=== PATIENT | female | born 1970 | race Caucasian/White ===

== ENCOUNTER 2022-02-02 18:03 | Emergency (ER) | payer MEDICAID ==
[~2022-02-02] VITALS: Ht 177.8 cm; Wt 146.4 kg
[2022-02-02 18:49] LABS: BASOPHILS # (AUTO) 0.1 X10'3 (0-0.2); BASOPHILS % (AUTO) 0.7 % (0-1); EOSINOPHILS # (AUTO) 0.3 X10'3 (0-0.9); EOSINOPHILS % (AUTO) 2.5 % (0-6); HEMATOCRIT 40.4 % (35.0-45.0); HEMOGLOBIN 13.9 g/dl (12.0-16.0); LYMPHOCYTES # (AUTO) 3.6 X10'3 (1.1-4.8); LYMPHOCYTES % (AUTO) 34.4 % (21-51); MEAN CORPUSCULAR HEMOGLOBIN 29.2 PG (27.0-31.0); MEAN CORPUSCULAR HGB CONC 34.3 g/dL (33.0-36.5); MEAN CORPUSCULAR VOLUME 85.1 FL (78-98); MONOCYTES # (AUTO) 0.6 X10'3 (0-0.9); MONOCYTES % (AUTO) 5.6 % (2-12); NEUTROPHILS % (AUTO) 56.8 % (42-75); PLATELET COUNT 263 X10'3 (140-440); RED BLOOD COUNT 4.75 X10'6 (4.20-5.60); RED CELL DISTRIBUTION WIDTH 14.3 % (11.5-14.5); WHITE BLOOD COUNT 10.5 X10'3 (4.5-11.0)
[2022-02-02 19:04] LABS: ALANINE AMINOTRANSFERASE 28 U/L (12-78); ALBUMIN 3.8 G/DL (3.4-5.0); ALBUMIN/GLOBULIN RATIO 1.1 (1.1-1.5); ALKALINE PHOSPHATASE 92 IU/L (46-116); ANION GAP 9 (8-16); ASPARTATE AMINO TRANSFERASE 18 U/L (10-37); BILIRUBIN,TOTAL 0.3 MG/DL (0.1-1.0); BLOOD UREA NITROGEN 11 MG/DL (7-18); BUN/CREATININE RATIO 16.2 (6.6-38.0); CALCIUM 8.5 MG/DL (8.5-10.1); CHLORIDE 105 MMOL/L (99-107); CREATININE 0.68 MG/DL (0.40-0.90); GLUCOSE 174 MG/DL (70-104); LIPASE 136 U/L (73-393); POTASSIUM 3.8 MMOL/L (3.5-5.1); SODIUM 142 MMOL/L (135-145); TOTAL CARBON DIOXIDE 28.2 MMOL/L (24-32); TOTAL PROTEIN 7.2 G/DL (6.4-8.2); eGFR > 90 ML/MIN
[2022-02-02] MEDS ORDERED: normal saline 1000ML IV soln IV ONE (19:05)
[2022-02-02] MEDS ORDERED: CefTRIAXone 2gm/NS 100ml IVPB 100 ML IV ONE (19:05)
[2022-02-02 19:08] LABS: URINE HCG NEGATIVE (NEG)
[2022-02-02 19:13] LABS: COLOR,URINE YELLOW (Yellow); GLUCOSE, URINE NEGATIVE (Neg); KETONES,URINE NEGATIVE (Neg); LEUKOCYTE ESTERASE ,URINE NEGATIVE (Neg); NITRITES, URINE NEGATIVE (Neg); OCCULT BLOOD,URINE TRACE-INTACT (Neg); PH,URINE 5.5 (4.8-8.0); PROTEIN,URINE NEGATIVE (Neg); UROBILINOGEN,URINE 0.2 E.U/dL (0.2-1.0)
[2022-02-02 19:16] LABS: MAGNESIUM 1.8 MG/DL (1.5-2.4)
[2022-02-02 19:26] LABS: CLARITY,URINE SLIGHTLY CLOUDY (Clear); UA COLLECTION TYPE CLN CATCH MIDSTREAM
[2022-02-02 19:27] LABS: BACTERIA,URINE 1+ /HPF (Neg); RBC,URINE 0-2 /HPF (0-2); SQUAMOUS EPITHELIAL CELL,UR FEW /LPF (FEW); WBC,URINE 0-4 /HPF (0-4)
[2022-02-02 20:17] LABS: URINE AMPHETAMINE SCREEN NEGATIVE (Neg); URINE BARBITUATE SCREEN NEGATIVE (Neg); URINE BENZODIAZEPINES SCREEN NEGATIVE (Neg); URINE CANNABINOID SCREEN NEGATIVE (Neg); URINE COCAINE SCREEN NEGATIVE (Neg); URINE METHADONE SCREEN NEGATIVE (Neg); URINE OPIATE SCREEN POSITIVE (Neg); URINE PHENCYCLIDINE SCREEN NEGATIVE (Neg)
[2022-02-02 22:03] VITALS: BP 131/73
== END 2022-02-02 22:09 | disposition home or self-care (01) ==
LOC: ER 18:05
DX: M54.50 Low back pain, unspecified (principal); R30.9 Painful micturition, unspecified; R50.9 Fever, unspecified; R11.2 Nausea with vomiting, unspecified; R10.2 Pelvic and perineal pain; I10 Essential (primary) hypertension; E11.9 Type 2 diabetes mellitus without complications; F41.9 Anxiety disorder, unspecified; F17.200 Nicotine dependence, unspecified, uncomplicated; Z87.440 Personal history of urinary (tract) infections; Z88.0 Allergy status to penicillin; Z88.8 Allergy status to other drugs, medicaments and biological substances
CPT/HCPCS: 36415; 71045; 74176; 80053; 80305; 81001; 81025; 83605; 83690; 83735; 84145; 85025; 87040; 93005; 96365; 99285; J0696; J7030

== ENCOUNTER 2022-04-04 16:46 | Emergency (ER) | payer MEDICAID ==
[~2022-04-04] VITALS: Ht 175.3 cm; Wt 140.9 kg
[2022-04-04 18:32] LABS: BASOPHILS # (AUTO) 0.1 X10'3 (0-0.2); BASOPHILS % (AUTO) 0.9 % (0-1); EOSINOPHILS # (AUTO) 0.3 X10'3 (0-0.9); EOSINOPHILS % (AUTO) 3.3 % (0-6); HEMATOCRIT 43.4 % (35.0-45.0); HEMOGLOBIN 14.2 g/dl (12.0-16.0); LYMPHOCYTES # (AUTO) 3.5 X10'3 (1.1-4.8); LYMPHOCYTES % (AUTO) 37.6 % (21-51); MEAN CORPUSCULAR HGB CONC 32.7 g/dL (33.0-36.5); MEAN CORPUSCULAR VOLUME 85.5 FL (78-98); MEAN PLATELET VOLUME 8.2 FL (7.4-10.4); MONOCYTES # (AUTO) 0.5 X10'3 (0-0.9); MONOCYTES % (AUTO) 5.6 % (2-12); NEUTROPHILS % (AUTO) 52.6 % (42-75); PLATELET COUNT 272 X10'3 (140-440); RED BLOOD COUNT 5.07 X10'6 (4.20-5.60); RED CELL DISTRIBUTION WIDTH 14.6 % (11.5-14.5); WHITE BLOOD COUNT 9.4 X10'3 (4.5-11.0)
[2022-04-04 18:52] LABS: ALANINE AMINOTRANSFERASE 51 U/L (12-78); ALBUMIN/GLOBULIN RATIO 1.1 (1.1-1.5); ALKALINE PHOSPHATASE 69 IU/L (46-116); ANION GAP 9 (8-16); ASPARTATE AMINO TRANSFERASE 33 U/L (10-37); BILIRUBIN,TOTAL 0.3 MG/DL (0.1-1.0); BLOOD UREA NITROGEN 15 MG/DL (7-18); CALCIUM 9.2 MG/DL (8.5-10.1); CHLORIDE 102 MMOL/L (99-107); CREATININE 0.88 MG/DL (0.40-0.90); GLUCOSE 154 MG/DL (70-104); POTASSIUM 4.1 MMOL/L (3.5-5.1); SODIUM 139 MMOL/L (135-145); TOTAL CARBON DIOXIDE 28.5 MMOL/L (24-32); TOTAL PROTEIN 7.6 G/DL (6.4-8.2); eGFR 68 ML/MIN
[2022-04-04 19:55] LABS: D-DIMER 0.39 MG/L FEU (0-0.50)
[2022-04-04] MEDS ORDERED: ketorolac tromethamine 15mg/ml inj. IM ONE (20:10)
[2022-04-04] MEDS ORDERED: LORazepam 1 MG tablet PO ONE (20:10)
[2022-04-04 20:42] VITALS: BP 123/83
== END 2022-04-04 20:45 | disposition home or self-care (01) ==
LOC: ER 16:47
DX: R07.89 Other chest pain (principal); I10 Essential (primary) hypertension; E11.42 Type 2 diabetes mellitus with diabetic polyneuropathy; F41.9 Anxiety disorder, unspecified; Z98.51 Tubal ligation status; Z88.0 Allergy status to penicillin; Z88.6 Allergy status to analgesic agent; Z88.8 Allergy status to other drugs, medicaments and biological substances; Z79.899 Other long term (current) drug therapy
CPT/HCPCS: 36415; 71045; 80053; 83880; 84484; 85025; 85379; 93005; 96372; 99285; J1885

== ENCOUNTER 2024-02-09 00:16 | Emergency (ER) | payer MEDICAID ==
[~2024-02-09] VITALS: Ht 177.8 cm; Wt 135.0 kg
[2024-02-09 00:25] VITALS: TEMP 99
[2024-02-09] MEDS: LORazepam 2 mg/ml vial IV ONE (01:09)
[2024-02-09] MEDS: normal saline 1000ML IV soln IVB ONE ×2 (01:09→02:39)
[2024-02-09 01:37] LABS: BASOPHILS # (AUTO) 0.1 X10'3 (0-0.2); BASOPHILS % (AUTO) 0.9 % (0-1); EOSINOPHILS # (AUTO) 0.5 X10'3 (0-0.9); HEMATOCRIT 44.4 % (35.0-45.0); HEMOGLOBIN 15.1 g/dl (12.0-16.0); LYMPHOCYTES # (AUTO) 4.8 X10'3 (1.1-4.8); LYMPHOCYTES % (AUTO) 38.7 % (21-51); MEAN CORPUSCULAR HEMOGLOBIN 29.1 PG (27.0-31.0); MEAN CORPUSCULAR VOLUME 85.8 FL (78-98); MEAN PLATELET VOLUME 8.4 FL (7.4-10.4); MONOCYTES # (AUTO) 0.8 X10'3 (0-0.9); MONOCYTES % (AUTO) 6.2 % (2-12); NEUTROPHILS # (AUTO) 6.3 X10'3 (1.8-7.7); NEUTROPHILS % (AUTO) 50.2 % (42-75); PLATELET COUNT 249 X10'3 (140-440); RED BLOOD COUNT 5.17 X10'6 (4.20-5.60); RED CELL DISTRIBUTION WIDTH 14.2 % (11.5-14.5); WHITE BLOOD COUNT 12.5 X10'3 (4.5-11.0)
[2024-02-09 01:53] LABS: PROTHROMBIN TIME 10.9 SECONDS (9.0-12.0)
[2024-02-09 02:42] LABS: ALANINE AMINOTRANSFERASE 18 U/L (12-78); ALBUMIN 3.4 G/DL (3.4-5.0); ALBUMIN/GLOBULIN RATIO 0.9 (1.1-1.5); ALKALINE PHOSPHATASE 96 IU/L (46-116); ANION GAP 13 (8-16); ASPARTATE AMINO TRANSFERASE 8 U/L (10-37); BILIRUBIN,TOTAL 0.3 MG/DL (0.1-1.0); BLOOD UREA NITROGEN 22 MG/DL (7-18); BUN/CREATININE RATIO 26.8 (10.0-20.0); CALCIUM 8.7 MG/DL (8.5-10.1); CHLORIDE 102 MMOL/L (99-107); CREATININE 0.82 MG/DL (0.40-0.90); GLUCOSE 225 MG/DL (70-104); POTASSIUM 3.7 MMOL/L (3.5-5.1); SODIUM 140 MMOL/L (135-145); TOTAL CARBON DIOXIDE 25.5 MMOL/L (24-32); TOTAL PROTEIN 7.2 G/DL (6.4-8.2); eCRCL 88 ML/MIN; eGFR 73 ML/MIN
[2024-02-09 02:50] LABS: LIPASE 75 U/L (16-77); PRO BRAIN NATRIURETIC PEPTIDE < 30 PG/ML (0-125)
[2024-02-09 03:11] LABS: D-DIMER 0.25 MG/L FEU (0-0.50)
[2024-02-09 04:14] VITALS: BP 128/52; PULSE 121; RESP 20; O2SAT 94
== END 2024-02-09 04:16 | disposition left against medical advice (07) ==
LOC: ER 00:17
DX: R00.0 Tachycardia, unspecified (principal); F12.10 Cannabis abuse, uncomplicated; I10 Essential (primary) hypertension; E11.9 Type 2 diabetes mellitus without complications; R79.1 Abnormal coagulation profile; Z88.0 Allergy status to penicillin; Z91.041 Radiographic dye allergy status; Z79.899 Other long term (current) drug therapy; Z98.51 Tubal ligation status
CPT/HCPCS: 36415; 71045; 80053; 83690; 83880; 84484; 85025; 85379; 85610; 93005; 96361; 96374; 99285; J2060; J7030

== ENCOUNTER 2025-04-24 13:53 | Inpatient (IN) | payer MEDICAID ==
[~2025-04-24] VITALS: Ht 175.3 cm; Wt 137.0 kg
--- NOTE | 2025-04-24 14:20 | ELECTROCARDIOGRAPH REPORT ---
[facility] Test Date: 2025-04-24 Test Time: 14:17:11 Pat Name: DOMINIK CHISHOLM Department: [facility]- Patient ID: [facility]-[id number] Room: Gender: F [employer]: : 1970 Requested By: ARA BELCHER Order Number: [id number] Reading MD: Measurements Intervals [place] Rate: 129 P: 53 WI: 128 QRS: 49 QRSD: 79 T: 60 QT: 307 QTc: 450 Interpretive Statements Sinus tachycardia Baseline wander in lead(s) V6 Please click the below link to view image of tracing.
[2025-04-24 14:24] LABS: BASOPHILS # (AUTO) 0.1 X10'3 (0-0.2); BASOPHILS % (AUTO) 0.8 % (0-1); EOSINOPHILS # (AUTO) 0.2 X10'3 (0-0.9); EOSINOPHILS % (AUTO) 1.1 % (0-6); HEMATOCRIT 47.8 % (35.0-45.0); HEMOGLOBIN 16.4 g/dl (12.0-16.0); LYMPHOCYTES # (AUTO) 3.2 X10'3 (1.1-4.8); LYMPHOCYTES % (AUTO) 17.3 % (21-51); MEAN CORPUSCULAR HEMOGLOBIN 29.6 PG (27.0-31.0); MEAN CORPUSCULAR HGB CONC 34.3 g/dL (33.0-36.5); MEAN CORPUSCULAR VOLUME 86.3 FL (78-98); MEAN PLATELET VOLUME 8.2 FL (7.4-10.4); MONOCYTES # (AUTO) 0.8 X10'3 (0-0.9); MONOCYTES % (AUTO) 4.1 % (2-12); NEUTROPHILS % (AUTO) 76.7 % (42-75); PLATELET COUNT 295 X10'3 (140-440); RED BLOOD COUNT 5.53 X10'6 (4.20-5.60); RED CELL DISTRIBUTION WIDTH 14.5 % (11.5-14.5); WHITE BLOOD COUNT 18.3 X10'3 (4.5-11.0)
[2025-04-24 14:27] LABS: URINE HCG NEGATIVE (NEG)
[2025-04-24 14:29] LABS: BILIRUBIN,URINE NEGATIVE (Neg); COLOR,URINE STRAW (Yellow); GLUCOSE, URINE 250 mg/dl (Neg); KETONES,URINE NEGATIVE (Neg); LEUKOCYTE ESTERASE ,URINE TRACE (Neg); NITRITES, URINE NEGATIVE (Neg); OCCULT BLOOD,URINE SMALL (Neg); PH,URINE 6.5 (4.8-8.0); PROTEIN,URINE NEGATIVE (Neg); UROBILINOGEN,URINE 0.2 E.U/dL (0.2-1.0)
--- NOTE | 2025-04-24 14:34 | Physician Documentation ---
History of Present Illness Chief Complaint: Abdominal Pain w/vomiting Stated Complaint: ABD PAIN Time Seen by MD: 14:16 Primary Medical Doctor: Srinivas MAYFIELD 55-year-old female presenting with abdominal pain, nausea and vomiting that started a couple of days ago. Patient states that she has had nonbloody emesis and has been very nauseated. Additionally she endorses diarrhea with a couple episodes of bright red rectal bleeding that occurred today. She states that she has not been able to keep much food or fluids down. Patient states that she has been on Wegovy for weight loss and this was started about 2-3 months ago. Denies any sick contacts. Denies any unusual foods or travel. She has felt slightly febrile but has not had fever. Endorses some chills. Also states that she had one episode where she urinated and she saw some blood and a blood clot. Denies any dysuria or any other associated symptoms. Medication Reconciliation Allergies: Coded Allergies: Penicillins (Verified Allergy, Unknown, rash, 02/02/22) iodine (Verified Allergy, Unknown, 02/02/22) ziprasidone HCl (Verified Allergy, Unknown, 02/02/22) ziprasidone mesylate (Verified Allergy, Unknown, 02/02/22) Past Medical History Past Medical History: Peripheral Neuropathy, Hypertension, *GI/HEPATOBILIARY*, UTI, Diabetes, *MUSCULOSKELETAL*, Anxiety Past Surgical History: no surgical history, tubal ligation Alcohol Use: None Drug Use: none Lives with: Family Lives In: Home Occupation: disabled Review of Systems All Other Systems at this time: Reviewed and Negative Physical Exam Vital Signs: Temperature: 98.6, Source: Oral, Heart Rate: 128, Respiratory Rate: 17, BP: 145/93, Pulse Oximetry: 96, Weight: 137.000 Oxygen Flow Rate: 0 Physical Exam I have reviewed the triage vitals. CONST: Well developed and well nourished. In no acute distress HENT: Head Atraumatic EYES: Pupils are equal, round and reactive to light. Normal conjunctiva NECK: Normal range of motion. Supple. CARDIO: Tachycardic, regular rhythm. No murmurs, rubs, or gallops. S1, S2. PULM/CHEST: No respiratory distress. Lungs clear to auscultation. No wheeze ABD: Soft and nontender. Nondistended. Bowel sounds normal. No guarding. Obese : Exam deferred MSK: No edema. No deformity. NEURO: Alert and oriented to person, place and time. Moving all extremities SKIN: Warm and dry. PSYCH: Normal mood and affect. Good eye contact. Progress Results/Orders Results/Orders Orders - ARA BELCHER MD Urinalysis, Cult If Indicated (04/24/25 13:54) BMP (04/24/25 13:54) Lipase (04/24/25 13:54) CMP (04/24/25 13:54) Culture Blood (04/24/25 14:27) Lacticsepsis (04/24/25 14:27) MG (04/24/25 14:29) Hs Troponin I W Calculations (04/24/25 14:29) Completed Orders - ARA BELCHER MD Hcg, Ur Ql (04/24/25 13:54) Cbc/Diff (04/24/25 13:54) Stat Ekg (04/24/25 ) Vital Signs 04/24/25 04/24/25 14:06 14:19 Temp 98.6 Pulse 140 128 Resp 18 17 B/P (MAP) 141/87 145/93 (110) Pulse Ox 98 96 O2 Flow Rate 0 Laboratory Tests Test 04/24/25 14:08 04/24/25 14:10 Urine HCG, Qualitative Negative Urine Comment White Blood Count 18.3 H Red Blood Count 5.53 Hemoglobin 16.4 H Hematocrit 47.8 H Mean Corpuscular Volume 86.3 Mean Corpuscular Hemoglobin 29.6 Mean Corpuscular Hemoglobin Concent 34.3 Red Cell Distribution Width 14.5 Platelet Count 295 Mean Platelet Volume 8.2 Neutrophils (%) (Auto) 76.7 H Lymphocytes (%) (Auto) 17.3 L Monocytes (%) (Auto) 4.1 Eosinophils (%) (Auto) 1.1 Basophils (%) (Auto) 0.8 Neutrophils # (Auto) 14.0 H Lymphocytes # (Auto) 3.2 Monocytes # (Auto) 0.8 Eosinophils # (Auto) 0.2 Basophils # (Auto) 0.1 CBC Comment Chemistry Comments EKG/XRAY/CT/US/VASC/MRI EKG : Additional Comment EKG as interpreted by ED indicating sinus tachycardia at 129 beats per minute, no ischemia, normal axis Departure Disposition: ADMITTED INPATIENT Admission Level of Care: Med/Surg with Tele Impression: Primary Impression: UTI (urinary tract infection) Additional Impressions: Pyelonephritis Lower GI bleed Condition: Guarded Referrals: NO PRIMARY CARE PROVIDER (PCP) ARA BELCHER MD Apr 24, 2025 14:34
[2025-04-24 14:39] LABS: CLARITY,URINE SLIGHTLY CLOUDY (Clear); UA COLLECTION TYPE CLN CATCH MIDSTREAM
[2025-04-24 14:41] LABS: BACTERIA,URINE 1+ /HPF (Neg); MUCUS STRANDS NONE SEEN /LPF (Neg); SQUAMOUS EPITHELIAL CELL,UR MODERATE /LPF (FEW); WBC CLUMPS,URINE FEW /HPF (NEGATIVE)
[2025-04-24 14:48] LABS: ALANINE AMINOTRANSFERASE 21 U/L (12-78); ALBUMIN 3.6 G/DL (3.4-5.0); ALBUMIN/GLOBULIN RATIO 0.9 (1.1-1.5); ALKALINE PHOSPHATASE 102 IU/L (46-116); ANION GAP 10 (8-16); ASPARTATE AMINO TRANSFERASE 5 U/L (10-37); BILIRUBIN,TOTAL 0.4 MG/DL (0.1-1.0); BLOOD UREA NITROGEN 11 MG/DL (7-18); BUN/CREATININE RATIO 12.2 (10.0-20.0); CALCIUM 8.8 MG/DL (8.5-10.1); CHLORIDE 98 MMOL/L (99-107); GLUCOSE 224 MG/DL (70-104); SODIUM 135 MMOL/L (135-145); TOTAL CARBON DIOXIDE 27.3 MMOL/L (24-32); TOTAL PROTEIN 7.7 G/DL (6.4-8.2); eCRCL 76 ML/MIN; eGFR 65 ML/MIN
[2025-04-24 14:51] LABS: LIPASE 50 U/L (16-77); MAGNESIUM 1.9 MG/DL (1.5-2.4)
[2025-04-24] MEDS: normal saline 1000ml 1,000 ML IV ONE (14:54)
[2025-04-24] MEDS: ondansetron/PF 4mg/2ml inj IV ONE (14:58)
[2025-04-24] MEDS: morphine 4 MG/ML inj SYRINge IV ONE ×2 (14:59→18:40)
[2025-04-24] MEDS: CefTRIAXone/D5W-Rocephin 1gm 50 ML IV ONE (17:14)
[2025-04-24] MEDS ORDERED: potassium Cl 20 mEq SR tablet PO PRN ×2 (19:10)
[2025-04-24] MEDS ORDERED: acetaminophen 325mg tablet PO PRN ×2 (19:10→23:20)
[2025-04-24] MEDS ORDERED: potassium Cl 40MEQ/1/2NS 520ml 520 ML IV PRN (19:10)
[2025-04-24] MEDS ORDERED: magnesium Cl slow-release 64mg tablet PO PRN (19:10)
[2025-04-24] MEDS ORDERED: magnesium sulf-water 2g/50mL 50 ML IV PRN (19:10)
[2025-04-24] MEDS ORDERED: ondansetron/PF 4mg/2ml inj IV PRN (19:10)
[2025-04-24] MEDS ORDERED: magnesium sulf-water 4G/100mL 100 ML IV PRN (19:10)
--- NOTE | 2025-04-24 19:23 | RADIOLOGY REPORT ---
COMPUTERIZED TOMOGRAPHY ABDOMEN AND PELVIS WITHOUT CONTRAST REASON FOR EXAM: Abdominal pain/rectal bleeding COMPARISON: CT ABDOMEN PELVIS on DOS: 02/02/22 TECHNIQUE: Spiral scans were acquired from the diaphragm to the symphysis pubis without intravenous c ontrast administration. 2-D coronal and sagittal reformatted images were provided. Radiation optimiza tion: All CT scans at this facility use at least one of these dose optimization techniques: Automated exposure control mA and/or kV adjustment per patient size (includes targeted exams where dose is mat ched to clinical indication) or iterative reconstruction. RADIATION DOSE: CTDI: 35 mGy DLP: 1954 mGy-cm FINDINGS: There is minimal dependent atelectasis in bilateral lower lobes. There is no pleural effusion. There is no pericardial effusion. The spleen is not enlarged. The liver is normal in size and contour. Evaluation of the abdominal org ans is suboptimal in the absence of intravenous contrast. No calcified gallstone is identified. Ther e is no pericholecystic edema. Unenhanced appearance of the pancreas is unremarkable. The adrenal gla nds are normal. The kidneys are similar in size. There is no hydronephrosis of either kidney. There is a 2 mm nonobstructive calculus at the inferior pole of the right kidney. There is no abdominal ao rtic aneurysm. There is no pathologic lymphadenopathy in the abdomen or pelvis by size criteria. Ther e is no pathologic distention of the small bowel to suggest obstruction. The urinary bladder is unrem arkable. The uterus and ovaries are within normal limits. There is no significant colonic diverticul osis. There is diffuse circumferential thickening with mild surrounding inflammatory stranding of the entire length of the descending colon. There is no significant colonic stool burden. The appendix is normal. There is an infraumbilical fat containing hernia with a 1.2 cm fascial defect. No acute osse ous abnormality is identified. There are degenerative changes throughout the visualized spine. IMPRESSION: Findings most consistent with colitis of the entire length of the descending colon. Infraumbilical fat containing hernia with a 1.2 cm fascial defect. Nonobstructive 2 mm calculus at the inferior pole of the right kidney.
[2025-04-24] MEDS ORDERED: dextrose 50%-water 50ml dispensing syringe IV PRN ×2 (19:45)
[2025-04-24] MEDS ORDERED: glucagon, human recombinant 1mg kit SUBCUT PRN (19:45)
[2025-04-24] MEDS ORDERED: DEXTROSE 15 GM of carb/4 tabs (each vial/BOTTLE has 4 tablets) PO PRN ×2 (19:45)
[2025-04-24] MEDS: docusate sod 100mg capsule PO SCH (20:00)
[2025-04-24] MEDS: K and/or MAG REPLACEMENT MC SCH (20:00)
[2025-04-24 20:43] LABS: APTT 26 SECONDS (22-32); INR 1.2 INR; PROTHROMBIN TIME 11.9 SECONDS (9.0-12.0)
[2025-04-24] MEDS: INSULIN LISPRO 100 UNIT/ML INSULN.PEN MULTI-DOSE SQ SCH (20:49)
[2025-04-24] MEDS: metroNIDAZOLE-Flagyl 500mg/NS 100 ML IV SCH (20:56)
[2025-04-24] MEDS: normal saline 1000ml 1,000 ML IV SCH (20:56)
[2025-04-24] MEDS ORDERED: CLON1TAB12 (21:48)
[2025-04-24] MEDS ORDERED: GABA-535 (21:49)
[2025-04-24] MEDS ORDERED: HYDR-3968 (21:49)
[2025-04-24] MEDS ORDERED: TRAZ-251 (21:51)
[2025-04-24] MEDS ORDERED: VENL37.589 PO (21:51)
[2025-04-24] MEDS ORDERED: CARI3CAP PO (21:51)
[2025-04-24] MEDS ORDERED: NORT50CA PO (21:51)
[2025-04-24] MEDS ORDERED: ATOR20TA66 PO (21:51)
[2025-04-24] MEDS ORDERED: LISI10TA27 PO (21:51)
[2025-04-24 22:20] VITALS: BP 106/67; PULSE 111; RESP 18; TEMP 98.5; O2SAT 97
[2025-04-24] MEDS ORDERED: morphine 2 MG/ML inj. syringe IV PRN (23:20)
--- NOTE | 2025-04-24 23:25 | HISTORY AND PHYSICAL-Residence ---
History & Physical Providers to CC Resident Creating Document: GO DE LUNA RES ~ History of Present Illness Primary Medical Doctor: Srinivas Reason for Admit\Complaint: Abdominal pain History of Present Illness 54 years old female with history of obesity class three type 2 diabetes mellitus, hypertension presented to the ED due to abdominal pain and rectal bleeding. She reported abdominal pain started about couple of weeks ago and it was intermittent, she reported the severity of the pain 8/10 of the nature of the pain was reported as a pressure. She also reported 1-2 times rectal bleeding she reported the amount of bleeding about one cup and it was a right blood. She denied any similar symptoms before. She also reported one time nausea vomiting yesterday and also urinary frequency urgency waiting last couple of weeks. Denied any fever chills, diarrhea or constipation. Patient started taking Wegovy since six months ago and reported during last couple of weeks she had intermittent abdominal pain which became progressive. Allergies: Coded Allergies: Penicillins (Verified Allergy, Unknown, rash, 02/02/22) iodine (Verified Allergy, Unknown, 02/02/22) ziprasidone HCl (Verified Allergy, Unknown, 02/02/22) ziprasidone mesylate (Verified Allergy, Unknown, 02/02/22) Home Medications Home Medications Active Reported Trazodone HCl 50 Mg Tablet Atorvastatin Calcium 20 Mg Tablet 1 Tab PO DAILY Lisinopril 10 Mg Tablet 1 Tab PO DAILY Venlafaxine Hcl Er (Venlafaxine Hcl) 37.5 Mg Cap.sr.24h 1 Cap PO QAM Nortriptyline Hcl 50 Mg Capsule 1 Cap PO DAILY Vraylar (Cariprazine Hydrochloride) 3 Mg Capsule 1 Cap PO DAILY Hydrocodon-Acetaminoph 7.5-325 (Hydrocodone Bit/Acetaminophen) 7.5 Mg-325 Mg Tablet Gabapentin 400 Mg Capsule Clonazepam 1 Mg Tablet Past Medical History Past Medical History Obesity class three Hypertension Type 2 diabetes mellitus Melanoma Past Surgical History Surgical History Comment Tubular ligation Family History Family History: FH: colon cancer (Mother,) FH: throat cancer (Father,) Past Social History Smoking: Cigarettes (Smoke about six cigarettes daily for about 10 years) Alcohol Use: Sober (Sober for about 10 years) Drug Use: None Lives with: Family Lives In: Home Occupation: disabled ROS ROS The history of present illness included a review of system, which yielded relevant positives and negatives Exam Vitals: Vital Signs Date Time Temp Pulse Resp B/P (MAP) Pulse Ox O2 Delivery O2 Flow Rate FiO2 04/24/25 21:01 111 18 140/54 (82) 97 04/24/25 14:06 98.6 0 General: General: Awake and Alert, obese lady no acute distress. HEENT: Conjunctiva pink, Sclera clear, Mucus Membranes moist. Neck: Supple without masses and tenderness. Resp: Lungs clear to auscultation bilaterally. Heart: Regular Rate and rhythm, normal S1 and S2 Abdomen: Mild tenderness in lower abdomen no rebound tenderness Extremities: No cyanosis,clubbing or edema. Skin: Warm and Dry. Neurological: Speech is clear, alert, and oriented x 4, no gross neurological deficits Diagnostic Data Last Recorded Lab Results: 04/24/25 1410 04/24/25 1410 Diagnostic Data: Laboratory Tests Test 04/24/25 20:13 Prothrombin Time 11.9 SECONDS (9.0-12.0) INR International Normalized Ratio 1.2 INR Activated Partial Thromboplast Time 26 SECONDS (22-32) Coagulation Comments Advance Care Planning Advanced Care plannin - 30 Minutes Additional Plan 55 years old female with history of hypertension obesity, diabetes mellitus type 2 presented to the ED due to abdominal pain and rectal bleeding Abdominal pain Rectal bleeding Leukocytosis: WBC 18.3 Colitis, UTI UA is positive, following urine culture CT scan showed: Findings most consistent with colitis of the entire length of the descending colon. Infraumbilical fat containing hernia with a 1.2 cm fascial defect.Nonobstructive 2 mm calculus at the inferior pole of the right kidney. Patient received ceftriaxone in ED we will continue ceftriaxone and metronidazole Patient needs colonoscopy after the acute phase improved Diabetes mellitus type 2 Hemoglobin A1c is eight Hyperglycemia hypoglycemia protocol medium dose started Hypertension Blood pressure in ED is 140/87 Continue home medication after reconciliation Sinus tachycardia IV fluid started we will continue monitoring Code Status: Full DVT prophylaxis: heparin sq Analgesia/sedation: Morphine Line/tube: Peripheral GI prophylaxis: Protonix Nutrition: Carb control PT: Yes Prognosis: Guarded Disposition: Continue monitoring patient in ortho floor Go De Luna MD Internal Medicine Resident pt discussed with the resident Pancolitis on CT asked for GI consult Contd abx IVF also send for fecal calprotectin we will follow Date of Service: Apr 24, 2025 Billing Provider: ODIGARCHANA RORDÍGUEZ MD, [place], RES Apr 24, 2025 23:25 ARCHANA MARTINEZ MD Apr 25, 2025 03:08
[2025-04-25] VITALS (7 sets, daily range): BP systolic 103–143; BP diastolic 54–86; PULSE 84–107; RESP 16–18; TEMP 97.9–98.8; O2SAT 93–97
[2025-04-25] MEDS: gabapentin 400mg capsule PO SCH (00:03)
[2025-04-25] MEDS: morphine 2 MG/ML inj. syringe IV PRN (00:04)
[2025-04-25 06:25] LABS: BASOPHILS # (AUTO) 0.1 X10'3 (0-0.2); BASOPHILS % (AUTO) 0.5 % (0-1); EOSINOPHILS # (AUTO) 0.5 X10'3 (0-0.9); EOSINOPHILS % (AUTO) 3.5 % (0-6); HEMATOCRIT 39.8 % (35.0-45.0); HEMOGLOBIN 13.4 g/dl (12.0-16.0); LYMPHOCYTES # (AUTO) 3.3 X10'3 (1.1-4.8); LYMPHOCYTES % (AUTO) 23.8 % (21-51); MEAN CORPUSCULAR HEMOGLOBIN 28.9 PG (27.0-31.0); MEAN CORPUSCULAR HGB CONC 33.7 g/dL (33.0-36.5); MEAN CORPUSCULAR VOLUME 85.9 FL (78-98); MEAN PLATELET VOLUME 8.3 FL (7.4-10.4); MONOCYTES # (AUTO) 0.7 X10'3 (0-0.9); MONOCYTES % (AUTO) 5.2 % (2-12); NEUTROPHILS # (AUTO) 9.2 X10'3 (1.8-7.7); PLATELET COUNT 219 X10'3 (140-440); RED BLOOD COUNT 4.63 X10'6 (4.20-5.60); RED CELL DISTRIBUTION WIDTH 14.5 % (11.5-14.5); WHITE BLOOD COUNT 13.7 X10'3 (4.5-11.0)
[2025-04-25 06:58] LABS: ALANINE AMINOTRANSFERASE 14 U/L (12-78); ALBUMIN 2.8 G/DL (3.4-5.0); ALBUMIN/GLOBULIN RATIO 0.9 (1.1-1.5); ALKALINE PHOSPHATASE 77 IU/L (46-116); ANION GAP 8 (8-16); ASPARTATE AMINO TRANSFERASE 5 U/L (10-37); BILIRUBIN,TOTAL 0.4 MG/DL (0.1-1.0); BLOOD UREA NITROGEN 10 MG/DL (7-18); BUN/CREATININE RATIO 14.9 (10.0-20.0); CHLORIDE 104 MMOL/L (99-107); CHOL/HDL RATIO 3.2 (0.00-4.99); CHOLESTEROL 131 MG/DL (0-200); CREATININE 0.67 MG/DL (0.40-0.90); GLUCOSE 141 MG/DL (70-104); HDL CHOLESTEROL 41 MG/DL (35-60); LDL CHOLESTEROL 70 MG/DL (50-100); MAGNESIUM 1.9 MG/DL (1.5-2.4); POTASSIUM 3.6 MMOL/L (3.5-5.1); SODIUM 137 MMOL/L (135-145); TOTAL CARBON DIOXIDE 25.3 MMOL/L (24-32); TRIGLYCERIDES 115 MG/DL (20-135); eCRCL 101 ML/MIN; eGFR > 90 ML/MIN
[2025-04-25] MEDS: heparin, porcine 5000 units/ml vial SQ SCH (09:08)
[2025-04-25] MEDS: pantoprazole 40 MG vial IV SCH (09:22)
[2025-04-25] MEDS: traMADol 50MG tablet PO ONE (12:37)
--- NOTE | 2025-04-25 13:03 | RADIOLOGY REPORT ---
Procedure: DI ABDOMEN,SINGLE VIEW(KUB) [place] Study Date and Requested Time: 04/25/2025 12:30 PM Technique: 2 views of the abdomen and pelvis available for evaluation. History: Decreased bowel sounds Comparison: CT abdomen and pelvis 04/24/2025 Findings/ Impression: Nonspecific bowel gas pattern. No evidence of bowel obstruction or ileus. No abnormal calcifications are noted. The lung bases are outside the [id number]. No evidence of acute bony abnormalities.
[2025-04-25] MEDS: CefTRIAXone/D5W-Rocephin 1gm 50 ML IV SCH (15:27)
--- NOTE | 2025-04-25 21:32 | PROGRESS NOTE ---
Daily Progress Note Providers to CC ~ Antibiotic Timeout Antibiotic Ordered?: Yes Subjective Patient was seen in presence of her . Patient's all labs and diagnostic workup discussed in visit with her. Patient does have chronic psychiatric issues currently on clonazepam, nortriptyline, venlafaxine, trazodone and Vraylor Objective Vital Signs Date Time Temp Pulse Resp B/P (MAP) Pulse Ox O2 Delivery O2 Flow Rate FiO2 04/25/25 20:27 18 04/25/25 15:24 96 103/54 (70) 94 04/25/25 10:00 98.1 Room Air 04/25/25 08:00 0.0 Result Diagram: 04/25/25 0550 04/25/25 0550 General-patient not in any acute distress, obese, alert awake oriented, chronically ill-appearing HEENT-atraumatic normocephalic, neck supple without elevated JVD, no thyromegaly or carotid bruit. No lymphadenopathy bilaterally. Eyes-no icterus or pallor seen in eyes Chest-clear to auscultation bilaterally, breathing nonlabored no tachypnea, no wheezing, no crepitation, no crackles. Heart-S1-S2 normal, regular heart rate no murmur Abdomen - mildly decreased bowel sounds on auscultation, soft nondistended nontender no guarding, no rigidity Skin no active skin rash Neurology-grossly intact, nonfocal alert awake oriented Extremity- no pedal edema able to move all 4 extremities Psychiatry - patient is not confused or agitated cooperated during physical examination Coagulation Studies Laboratory Tests Test 04/24/25 20:13 Prothrombin Time 11.9 SECONDS (9.0-12.0) INR International Normalized Ratio 1.2 INR Activated Partial Thromboplast Time 26 SECONDS (22-32) Coagulation Comments Problem\Assessment\Plan 55 years old female with history of hypertension obesity, diabetes mellitus type 2 presented to the ED due to abdominal pain and rectal bleeding Abdominal pain Rectal bleeding Leukocytosis: WBC 18.3, improved Colitis, UTI UA is positive, following urine culture CT scan showed: Findings most consistent with colitis of the entire length of the descending colon. Infraumbilical fat containing hernia with a 1.2 cm fascial defect.Nonobstructive 2 mm calculus at the inferior pole of the right kidney. Patient received ceftriaxone in ED we will continue ceftriaxone and metronidazole Patient needs colonoscopy after the acute phase improved in outpatient setting Diabetes mellitus type 2 Hemoglobin A1c is 8.0 Continue on Hyperglycemia hypoglycemia protocol medium dose Hypertension Blood pressure in ED is 140/87 Continue home medication after reconciliation Sinus tachycardia IV fluid started we will continue monitoring Code Status: Full DVT prophylaxis: heparin sq Analgesia/sedation: Morphine Line/tube: Peripheral GI prophylaxis: Protonix Nutrition: Carb control PT: Yes Patient's current condition is guarded we will continue to follow patient in AM . Date of Service: Apr 25, 2025 Billing Provider: TIMOTHY LUONG MD Common Visit Codes: [id number] INP/OBS CARE(HIGH) TIMOTHY LUONG MD Apr 25, 2025 21:32
[2025-04-26 05:41] LABS: BASOPHILS # (AUTO) 0.1 X10'3 (0-0.2); BASOPHILS % (AUTO) 0.8 % (0-1); EOSINOPHILS # (AUTO) 0.5 X10'3 (0-0.9); EOSINOPHILS % (AUTO) 5.4 % (0-6); HEMATOCRIT 37.2 % (35.0-45.0); HEMOGLOBIN 12.7 g/dl (12.0-16.0); LYMPHOCYTES # (AUTO) 3.2 X10'3 (1.1-4.8); LYMPHOCYTES % (AUTO) 34.8 % (21-51); MEAN CORPUSCULAR HEMOGLOBIN 29.5 PG (27.0-31.0); MEAN CORPUSCULAR HGB CONC 34.2 g/dL (33.0-36.5); MEAN CORPUSCULAR VOLUME 86.4 FL (78-98); MEAN PLATELET VOLUME 8.1 FL (7.4-10.4); MONOCYTES # (AUTO) 0.5 X10'3 (0-0.9); MONOCYTES % (AUTO) 5.7 % (2-12); NEUTROPHILS # (AUTO) 4.9 X10'3 (1.8-7.7); NEUTROPHILS % (AUTO) 53.3 % (42-75); PLATELET COUNT 207 X10'3 (140-440); RED BLOOD COUNT 4.31 X10'6 (4.20-5.60); RED CELL DISTRIBUTION WIDTH 14.3 % (11.5-14.5); WHITE BLOOD COUNT 9.2 X10'3 (4.5-11.0)
[2025-04-26 06:00] VITALS: BP 155/86; PULSE 82; RESP 16; TEMP 97.5; O2SAT 94
[2025-04-26 06:01] LABS: ALANINE AMINOTRANSFERASE 14 U/L (12-78); ALBUMIN 2.7 G/DL (3.4-5.0); ALBUMIN/GLOBULIN RATIO 0.8 (1.1-1.5); ALKALINE PHOSPHATASE 69 IU/L (46-116); ANION GAP 5 (8-16); ASPARTATE AMINO TRANSFERASE 8 U/L (10-37); BILIRUBIN,TOTAL 0.3 MG/DL (0.1-1.0); BLOOD UREA NITROGEN 9 MG/DL (7-18); BUN/CREATININE RATIO 14.1 (10.0-20.0); CALCIUM 8.1 MG/DL (8.5-10.1); CHLORIDE 106 MMOL/L (99-107); CREATININE 0.64 MG/DL (0.40-0.90); GLUCOSE 131 MG/DL (70-104); POTASSIUM 3.5 MMOL/L (3.5-5.1); SODIUM 139 MMOL/L (135-145); TOTAL CARBON DIOXIDE 27.8 MMOL/L (24-32); TOTAL PROTEIN 5.9 G/DL (6.4-8.2); eCRCL 106 ML/MIN; eGFR > 90 ML/MIN
[2025-04-26 08:00] VITALS: RESP 16; O2SAT 97
[2025-04-26] MEDS ORDERED: CIPR-259 PO (11:56)
[2025-04-26] MEDS ORDERED: METR-159 PO (11:56)
--- NOTE | 2025-04-26 18:39 | DISCHARGE SUMMARY ---
Discharge Summary Providers to CC ~ Discharge Summary Admission Diagnosis: POSSIBLE PYELONEPHRITIS Hospital Course DATE OF ADMISSION: April 24, 2025 DATE OF DISCHARGE: April 26, 2025 CBC testing done on April 26, 2025 WBC 9.2, hemoglobin 12.7 hematocrit 37.2 sed rate 12. Serum chemistry done on April 26, 2025 sodium 139 potassium 3.5 creatinine 0.64 GFR 90. Hemoglobin A1c 8.0, normal lipid levels. Blood culture showed no growth after two days, urine culture showed no growth after two days ABDOMEN,SINGLE VIEW(KUB)-Findings/ Impression: Nonspecific bowel gas pattern. No evidence of bowel obstruction or ileus. No abnormal calcifications are noted. The lung bases are outside the [id number]. No evidence of acute bony abnormalities. CT ABDOMEN PELVIS-IMPRESSION: Findings most consistent with colitis of the entire length of the descending colon. Infraumbilical fat containing hernia with a 1.2 cm fascial defect. Nonobstructive 2 mm calculus at the inferior pole of the right kidney. Discharge Diagnosis\Comment: Abdominal pain secondary to acute colitis Rectal bleeding secondary to acute colitis Leukocytosis: Acute Colitis, acute UTI Uncontrolled Diabetes mellitus type 2 Hypertension Patient does have chronic psychiatric issues currently on clonazepam, nortriptyline, venlafaxine, trazodone and Vraylor Chronic pain syndrome on narcotic meds Operations\Procedures: None Consultants: None Complications: None Condition on DC: Stable New Medications: Ciprofloxacin HCl (Cipro) 500 Mg Tablet 1 TAB PO Q12H for 5 Days, #10 TAB Metronidazole* (Flagyl*) 500 Mg Tablet 1 TAB PO BID for 5 Days, #10 TAB Continued Medications: Atorvastatin Calcium (Atorvastatin Calcium) 20 Mg Tablet 1 TAB PO DAILY Cariprazine Hydrochloride (Vraylar) 3 Mg Capsule 1 CAP PO DAILY Clonazepam (Clonazepam) 1 Mg Tablet Gabapentin (Gabapentin) 400 Mg Capsule Hydrocodone Bit/Acetaminophen (Hydrocodon-Acetaminoph 7.5-325) 7.5 Mg-325 Mg Tablet Lisinopril (Lisinopril) 10 Mg Tablet 1 TAB PO DAILY Nortriptyline Hcl (Nortriptyline Hcl) 50 Mg Capsule 1 CAP PO DAILY Trazodone HCl (Trazodone HCl) 50 Mg Tablet Venlafaxine Hcl (Venlafaxine Hcl Er) 37.5 Mg Cap.sr.24h 1 CAP PO QAM Discharge Summary: 55 years old female with history of hypertension obesity, uncontrolled diabetes mellitus type 2 presented to the ED due to abdominal pain and rectal bleeding During hospitalization patient was treated for Abdominal pain secondary to acute colitis Rectal bleeding secondary to acute colitis Leukocytosis: Acute Colitis, acute UTI CT scan showed: Findings most consistent with colitis of the entire length of the descending colon. Infraumbilical fat containing hernia with a 1.2 cm fascial defect.Nonobstructive 2 mm calculus at the inferior pole of the right kidney. Patient received ceftriaxone in ED we continued ceftriaxone and metronidazole Patient needs colonoscopy after the acute phase improved in outpatient setting Diabetes mellitus type 2 Hemoglobin A1c is 8.0 Continue on Hyperglycemia hypoglycemia protocol medium dose Hypertension- stable Continued home medication after reconciliation Sinus tachycardia- resolved treated with IV fluids and continued monitoring Patient does have chronic psychiatric issues currently on clonazepam, nortriptyline, venlafaxine, trazodone and Vraylor Patient's clinical condition improved and she was stable throughout the hospitalization. She has been afebrile and getting discharged home in stable condition. Patient is seen and examined on the day of discharge discharge instructions provided to the patient.Patient's all labs and diagnostic workup discussed in visit with her. All questions and concerns answered to the best of my professional medical knowledge.Please follow-up with your primary care physician in outpatient setting for hospital follow-up. Further refill on pain medication as per primary care physician. Please read side effects of all your medications and follow-up with your Psychiatry specialist. Patient can get the referral to GI specialist from PCP in outpatient setting. General-patient not in any acute distress, obese, alert awake oriented, chronically ill-appearing HEENT-atraumatic normocephalic, neck supple without elevated JVD, no thyromegaly or carotid bruit. No lymphadenopathy bilaterally. Eyes-no icterus or pallor seen in eyes Chest-clear to auscultation bilaterally, breathing nonlabored no tachypnea, no wheezing, no crepitation, no crackles. Heart-S1-S2 normal, regular heart rate no murmur Abdomen - mildly decreased bowel sounds on auscultation, soft nondistended nontender no guarding, no rigidity Skin no active skin rash Neurology-grossly intact, nonfocal alert awake oriented Extremity- no pedal edema able to move all 4 extremities Psychiatry - patient is not confused or agitated cooperated during physical examination *Problems/Diagnosis: (1) Acute colitis Total Time Spent on D/C: > 30 Minutes Date of Service: Apr 26, 2025 Billing Provider: TIMOTHY LUONG MD Common Visit Codes: [id number] DISCH DAY >30min TIMOTHY LUONG MD Apr 26, 2025 18:33
== END 2025-04-26 13:30 | disposition home or self-care (01) | DRG 249 ==
LOC: ER 13:53 → ED HOLD 19:12 → ORTHO 4S 22:30
PROVIDERS: ADMIT Internal Medicine; ATTEND Internal Medicine
DX: K52.9 Noninfective gastroenteritis and colitis, unspecified (principal); E11.42 Type 2 diabetes mellitus with diabetic polyneuropathy; N12 Tubulo-interstitial nephritis, not specified as acute or chronic; F41.9 Anxiety disorder, unspecified; D72.829 Elevated white blood cell count, unspecified; G89.4 Chronic pain syndrome; I10 Essential (primary) hypertension; Z88.0 Allergy status to penicillin; Z88.8 Allergy status to other drugs, medicaments and biological substances; Z79.899 Other long term (current) drug therapy
CPT/HCPCS: 36415; 74018; 74176; 80053; 80061; 81001; 81025; 82948; 83036; 83605; 83690; 83735; 84145; 84484; 85025; 85610; 85651; 85730; 87040; 87081; 87088; 93005; 96361; 96365; 96375; 96376; 99285; G0378; J0696; J1644; J1815; J2270; J2405; J2470; J3490; J7030